=== PATIENT | male | born 1960 | race Caucasian/White ===

== ENCOUNTER 2017-07-27 12:28 | Emergency (ER) | payer OTHER ==
[2017-07-27 13:18] VITALS: BP 137/73
--- NOTE | 2017-07-27 13:48 | RAD ---
INDICATION: Right shoulder injury. TECHNIQUE: 3 views of the right shoulder were obtained. FINDINGS: There is an oblique fracture of the clavicle approximately at the junction of the middle and lateral thirds. The distal lateral fragment is angulated inferior relative to the proximal fragment. In addition there is a nondisplaced fracture of the acromion process. IMPRESSION: 1. OBLIQUE ANGULATED FRACTURE OF THE CLAVICLE. 2. NONDISPLACED FRACTURE OF THE ACROMION PROCESS OF THE SCAPULA.
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
== END 2017-07-27 13:59 | disposition home or self-care (01) ==
LOC: UCCORT 12:28
DX: S42.001A Fracture of unspecified part of right clavicle, initial encounter for closed fracture (principal); S42.031A Displaced fracture of lateral end of right clavicle, initial encounter for closed fracture; V19.3XXA Pedal cyclist (driver) (passenger) injured in unspecified nontraffic accident, initial encounter; Y93.55 Activity, bike riding; Y92.9 Unspecified place or not applicable; Z87.891 Personal history of nicotine dependence
CPT/HCPCS: 99203; G0463